=== PATIENT | male | born 1985 | race Caucasian/White ===

== ENCOUNTER 2016-08-20 21:14 | Emergency (ER) | payer OTHER ==
[~2016-08-20 21:14] MED LIST: NO MEDICATIONS
== END 2016-08-20 22:54 | disposition home or self-care (01) ==
LOC: SED 21:14
DX: T40.1X1A Poisoning by heroin, accidental (unintentional), initial encounter (principal); R03.0 Elevated blood-pressure reading, without diagnosis of hypertension; F17.200 Nicotine dependence, unspecified, uncomplicated
CPT/HCPCS: 99283